=== PATIENT | female | born 1935 | race Caucasian/White ===

== ENCOUNTER 2018-02-25 23:05 | Inpatient (IN) | payer MEDICARE, OTHER ==
[~2018-02-25] VITALS: Ht 170.2 cm; Wt 72.6 kg
[2018-02-26] VITALS (7 sets, daily range): BP systolic 118–168; BP diastolic 65–80
--- NOTE | 2018-02-26 00:50 | Diagnostic Imaging Report ---
EXAMINATION: Head CT without contrast. HISTORY:Status post fall. COMPARISON:None. TECHNIQUE: Multidetector axial images were obtained from the foramen magnum to the vertex without contrast. The images were reconstructed using brain and bone algorithms. Thin section brain images were reformatted into coronal and sagittal planes. Intravenous contrast: None IMAGE QUALITY: Suboptimal evaluation due to motion artifacts. FINDINGS: Skull/scalp: No lytic or blastic. lesions. No surgical changes. Parenchyma: Nonspecific few, scattered supratentorial white matter patchy hypodensity are likely related to small vessel ischemic changes. Suboptimal evaluation due to motion artifacts, despite the limitation no gross acute hemorrhage, mass or acute major vascular territorial infarct. Arteries: Mild atherosclerotic calcification in bilateral carotid siphon and V4 segment of the vertebral arteries. Dural sinuses: No abnormal density suggestive of thrombosis. Ventricles: Moderate compensated dilatation due to volume loss. No hydrocephalus. Extra-axial spaces: No abnormal density. Brain volume: Advanced generalized age-related cerebral volume loss. Craniocervical junction: No mass, Chiari malformation, or basilar invagination. Sella: No mass. Paranasal/mastoid sinuses: Mild mucosal thickening in left maxillary sinus. IMPRESSION: 1. Suboptimal evaluation due to motion artifacts, despite the limitation no gross acute posttraumatic intracranial abnormality. 2. Mild supratentorial white matter microvascular ischemic changes. 3. Advanced generalized cerebral volume loss. Signed by: Dr. Emily Fenton M.D. on 02/26/2018 12:47 AM
[2018-02-26] MEDS ORDERED: ONDANSETRON HCL INJ 2 MG/ML VIAL IV STA (01:53)
[2018-02-26] MEDS ORDERED: MORPHINE SULFATE 2 MG/ML SYR IV STA (01:53)
--- NOTE | 2018-02-26 02:08 | Diagnostic Imaging Report ---
KNEE LEFT THREE VIEWS, FEMUR 2 VIEWS MINIMUM LEFT, PELVIS AP 1-2 VIEWS Comparison: None Clinical history: Fall, left leg pain Findings: AP pelvis, left femur and knee: Limited by diffusely decreased bone mineralization and overlying artifact. Mild bilateral hip and knee degenerative changes. Oblique cortical step-off is seen of the left distal femur. Alice-Stieda lesion. Impression: Limited study. Nondisplaced oblique distal femur fracture. Signed by: Dr Alessandra Mckee MD on 02/26/2018 1:54 AM
--- NOTE | 2018-02-26 02:20 | Diagnostic Imaging Report ---
CHEST SINGLE (PORTABLE), 02/26/2018 12:03 AM Technique: CHEST SINGLE (PORTABLE) Comparison: None available. Clinical history: Fall Findings: See Impression. Severe left shoulder degenerative changes. A catheter projects over the upper abdomen. Impression: Severely limited by portable technique and marked leftward rotation. 1. Suboptimal assessment of the cardiomediastinal silhouette due to rotation. Aortic calcifications. 2. Suggestion of medial left basilar opacity may be projectional related to rotation. Recommend follow-up with attention to more centered positioning. Signed by: Dr Alessandra Mckee MD on 02/26/2018 2:16 AM
--- NOTE | 2018-02-26 02:35 | Diagnostic Imaging Report ---
CT LEFT LOWER EXTREMITY WO Clinical history: \S\? distal femur fx \[id number] \S\0200 Technique: Volumetric CT scan of the left leg was performed. No intravenous contrast was administered. Coronal, sagittal and axial images are generated from source data. Comparison: None Findings: There is diffusely decreased bone mineralization. A nondisplaced fracture is seen through the distal lateral femoral metadiaphysis, predominantly oblique with slight comminution distally. Mild adjacent periosteal reaction and sclerosis suggests there could be a subacute component. There is also a nondisplaced horizontal fracture of the patella. Well-corticated ossific fragment along the right medial femoral condyle is compatible with a Alice-Stieda lesion. Mild tricompartmental knee degenerative changes. Small knee joint effusion. Diffuse muscular atrophy and vascular calcifications are noted. Impression: 1. Nondisplaced distal left femur fracture, with possible subacute component. 2. Nondisplaced horizontal patellar fracture. Signed by: Dr Alessandra Mckee MD on 02/26/2018 2:32 AM
[2018-02-26 03:04] LABS: BASOPHILS % 0.5 % (0.0-1.0); EOSINOPHILS # (AUTO) 0.3 (0.0-0.4); EOSINOPHILS % 3.9 % (0.0-6.0); HEMATOCRIT 38.9 % (34.2-44.1); HEMOGLOBIN 12.8 g/dL (12.0-16.0); LYMPHOCYTES # (AUTO) 1.4 (1.0-3.2); MEAN CORPUSCULAR HEMOGLOBIN 31.1 pg (28-32); MEAN CORPUSCULAR HGB CONC 32.9 g/dL (31-35); MEAN CORPUSCULAR VOLUME 94.4 fL (81-99); MONOCYTES # (AUTO) 0.8 (0.2-0.8); MONOCYTES % 12.6 % (4.4-11.3); NEUTROPHILS % 61.8 % (38.7-80.0); PLATELET COUNT 175 x10e3/uL (140-360); RED BLOOD COUNT 4.12 x10e6/uL (3.6-5.1); RED CELL DISTRIBUTION WIDTH 15.2 % (11.7-14.4)
[2018-02-26 03:15] LABS: INR 1.08; PROTHROMBIN TIME 13.2 seconds (11.9-14.5)
[2018-02-26 03:16] LABS: PARTIAL THROMBOPLASTIN TIME 40.2 seconds (23.8-35.5)
[2018-02-26 03:24] LABS: ALANINE AMINOTRANSFERASE 22 IU/L (0-55); ALBUMIN 3.4 g/dL (3.5-5.0); ALKALINE PHOSPHATASE 77 IU/L (40-150); ANION GAP 11.2 mmol/L (8-16); BLOOD UREA NITROGEN 15 mg/dL (7-26); BUN/CREATININE RATIO 27 (6-25); CARBON DIOXIDE 32 mmol/L (22-29); CHLORIDE 90 mmol/L (98-107); CREATINE KINASE 154 IU/L (29-168); CREATININE, SERUM 0.56 mg/dL (0.57-1.11); EST GLOMERULAR FILTRATION RATE > 60 ML/MIN (60-); GLUCOSE 99 mg/dL (74-118); MAGNESIUM 2.2 MG/DL (1.3-2.1); POTASSIUM 4.2 mmol/L (3.5-5.1); SODIUM 129 mmol/L (136-145)
[2018-02-26] MEDS ORDERED: ONDANSETRON HCL INJ 2 MG/ML VIAL IV PRN (04:00)
[2018-02-26] MEDS ORDERED: SODIUM CHLORIDE 0.9% 1000ML 1,000 ML IV ONE (04:00)
[2018-02-26 06:28] LABS: CLARITY,URINE SL CLOUDY (CLEAR); COLOR,URINE YELLOW (YELLOW); LEUKOCYTE ESTERASE ,URINE 1+ (NEGATIVE); NITRITE,URINE NEGATIVE (NEGATIVE); PROTEIN,URINE DIPSTICK TRACE (NEGATIVE)
[2018-02-26] MEDS ORDERED: ULTRAM50 MG GT (06:28)
[2018-02-26] MEDS ORDERED: DOCUSATE SODIU100 M1 GT (06:28)
[2018-02-26] MEDS ORDERED: MAALOX MAXIMUM355 ML GT (06:28)
[2018-02-26] MEDS ORDERED: FAMOTIDINE20 MG GT (06:28)
[2018-02-26] MEDS ORDERED: NITROGLYCERIN0.4 MG SL (06:28)
[2018-02-26] MEDS ORDERED: LIDOCAINE1 EA TOP (06:28)
[2018-02-26] MEDS ORDERED: LASIX20 MG GT (06:28)
[2018-02-26] MEDS ORDERED: LEVOTHYROXINE100 MC1 GT (06:28)
[2018-02-26] MEDS ORDERED: SENNOSIDES8.6 MG GT (06:28)
[2018-02-26] MEDS ORDERED: AMBIEN10 MG GT (06:28)
[2018-02-26] MEDS ORDERED: HYDROCORTISONE30 GM TOP (06:28)
[2018-02-26] MEDS ORDERED: LORATADINE10 MG GT (06:28)
[2018-02-26] MEDS ORDERED: CYCLOBENZAPRINE10 MG GT (06:28)
[2018-02-26] MEDS ORDERED: MULTIVITAMINS1 EAC6 GT (06:28)
[2018-02-26 06:29] LABS: BILIRUBIN,URINE NEGATIVE (NEGATIVE); KETONES,URINE NEGATIVE (NEGATIVE); URINE UROBILINOGEN 0.2 mg/dL (0.2 - 1)
[2018-02-26 06:40] LABS: EPITHELIAL CELLS,URINE RARE /LPF; TRANSITIONAL EPI CELLS,URINE FEW; WBC,URINE (MAN) >50 /HPF (0-5)
[2018-02-26 06:41] LABS: BACTERIA,URINE FEW /HPF; RBC,URINE 0-5 /HPF (0-5)
[2018-02-26] MEDS: MORPHINE SULFATE 2 MG/ML SYR IV PRN (07:36)
[2018-02-26] MEDS ORDERED: JEVITY237 ML GT (08:14)
[2018-02-26] MEDS ORDERED: LIDOCAINE 5% PATCH TP PRN (10:30)
[2018-02-26] MEDS ORDERED: NITROGLYCERIN 0.4 MG SUBL SL PRN (10:30)
[2018-02-26] MEDS ORDERED: HYDROCORTISONE .5% 30 GM TUBE TOP PRN (10:30)
[2018-02-26] MEDS ORDERED: MAGNESIUM/ALUMINUM/SIMETHICONE 30 ML UDC GT PRN (10:30)
--- NOTE | 2018-02-26 13:18 | History and Physical ---
She is an 82-year-old female patient of mine. She was transferred at the [facility] from [place] after dysphagia, fall and severe weakness, and patient had a recent G-tube placement for malnutrition. While patient was getting rehab at the long-term, patient had a fall and patient had hurt her left thigh area. Patient has nondisplaced fracture of the distal femur. Patient was sent to the ER and patient was found to have a nondisplaced oblique distal femur fracture. Patient was having severe pain, requiring IV analgesics. Patient was admitted for further care. ALLERGIES: NO KNOW DRUG ALLERGIES. MEDICAL HISTORY: Patient has significant medical history of idiopathic polymyositis with severe weakness, lack of coordination, dysphagia which required a PEG tube placement, chronic moderate protein-calorie malnutrition, hypertension, insomnia, arthritis, and hypothyroidism. PAST SURGICAL HISTORY: Patient has recent PEG tube placed. SOCIAL HISTORY: Denies smoking, denies using alcohol. MEDICATIONS: See from the long-term list. FAMILY HISTORY: Hypertension. REVIEW OF SYSTEMS: Left thigh pain. PHYSICAL EXAMINATION GENERAL: She is an elderly female patient, lying in the bed, not in any acute distress. Patient was recently given IV analgesic morphine. VITAL SIGNS: Temperature 97, pulse is 65, blood pressure 168/77, respiration rate 14, O2 sat 96%. HEENT: Normocephalic, atraumatic. No JVD. No lymphadenopathy. LUNGS: Bilateral equal air entry. No rales, no rhonchi. HEART: S1, S2 regular. Systolic murmur present. ABDOMEN: Soft. Bowel sounds present. NEUROLOGIC: No focal neurological deficit. The patient has a generalized muscle weakness. ACUTE RADIOLOGICAL EXAMINATION: Patient has a distal femur fracture and patellar fracture in the left side. LABORATORY EXAMINATION: Patient has a sodium of 129. ADMITTING IMPRESSION/DIAGNOSES 1. Left distal femur fracture with left patellar fracture. 2. Hyponatremia. 3. Severe pain. 4. Dysphagia. 5. Hypertension. 6. Hypothyroidism. PLAN: Patient had orthopedic evaluation, was done by Dr. Leroy and patient was advised to keep a splint for 8 to 10 weeks and immobilization of the left thigh area and nonweightbearing. Patient will be anticoagulated, prophylaxis for DVT. Patient will be admitted with the above diagnoses and will also obtain rehab, LTAC, consult Dr. Coy. Patient will be given Lovenox and morphine. Job#: [id number] LPA
[2018-02-26] MEDS: SENNOSIDES 8.6 MG TAB GT SCH (16:21)
[2018-02-26] MEDS: DOCUSATE SODIUM LIQD 100 MG/10 ML UDC GT SCH (16:21)
[2018-02-26] MEDS: FAMOTIDINE 20 MG TAB GT SCH (16:21)
[2018-02-26] MEDS: ENOXAPARIN 30 MG/0.3 ML SYR SC SCH (16:22)
[2018-02-26] MEDS: TRAMADOL HCL 50 MG TAB GT PRN ×2 (16:30→20:35)
[2018-02-26] MEDS ORDERED: ACETAMINOPHEN/CODEINE 300MG - 30MG TAB PO PRN (16:45)
--- NOTE | 2018-02-26 17:38 | Consultation ---
DATE OF CONSULTATION: February 26, 2018 REHAB CONSULTATION REFERRING PHYSICIAN: Dr. Agustín Chan. I would like to thank Dr. Chan for asking me to see Mrs. Perez in consultation. REASON FOR CONSULTATION 1. Status post fall with distal femur fracture and left patella fracture. 2. Dysphagia with PEG tube placement. 3. Idiopathic polymyositis with muscle weakness. 4. Hypertension. HISTORY: The patient is an 82-year-old very pleasant female who is staying over at a local [facility] facility when she had a fall. The patient had recent G tube placement for malnutrition. While she was in therapy, she unfortunately fell and hurt her thigh, came back and found to have a nondisplaced fracture of the distal femur as well as a nondisplaced patella fracture. Was seen by Dr. Leroy, is nonweightbearing to the left lower extremity and is being treated with a splint and then eventually a cast, no surgery at this point. I am being asked to evaluate for possible rehab stay. PAST MEDICAL HISTORY: Includes idiopathic polymyositis with weakness, dysphagia chronic, moderate protein caloric malnutrition, hypertension, insomnia, arthritis, hypothyroidism. SURGERIES: PEG tube placement. HABITS: Nonsmoker, nondrinker. SOCIAL HISTORY: Was living at home and hopes to eventually be able to go back home, but she has been in the penitentiary facility for quite some time. FAMILY HISTORY: Hypertension runs in the family. CONSTITUTIONAL REVIEW OF SYSTEMS: Eleven-point review of systems noted. She has generalized weakness due to her polymyositis, a little bit more weak on the left shoulder compared to the right shoulder. Otherwise she has some generalized weakness. Rest of the review of systems essentially negative. LABS: White cell count of 6.4, hemoglobin 12.8, hematocrit 38.9, platelets of 175. Sodium is 129, potassium 4.2, BUN of 15, creatinine of 0.56. IMAGING: She had the CT of the left femur which showed nondisplaced oblique distal femur fracture. She also had one of the brain which showed suboptimal evaluation but no gross acute posttraumatic intracranial abnormalities. Has a horizontal patella fracture. PHYSICAL EXAMINATION GENERAL: Awake and alert. She is very pleasant. NECK: No JVD. HEART: Regular. LUNGS: Fair entry. ABDOMEN: Nontender. She has a PEG tube in place. Nondistended. EXTREMITIES: She has a functional range of motion to the upper extremities. She has a large posterior splint on the left foot. She can wiggle her toes, and she has feeling to the toes. No cyanosis or excessive edema to the toes of the left foot. She has limited active range of motion of the right lower extremity. No new sensory changes per her report. MANUAL MUSCLE TESTING: Shoulder flexion and extension is 3+/5 on the left, 4-/5 on the right. Elbow flexion and extension and border measurer is 4-/5 bilaterally. In the left lower extremity, hip and knee flexion and extension was not tested. She cannot wiggle her ankle, and she is in a posterior splint. However, she can still wiggle her toes of the left foot. The left lower extremity demonstrates at least 3/5 strength with hip and knee flexion and extension. IMPRESSION 1. Status post fall with distal left femur and patella fracture. 2. Polymyositis. 3. Patient with dysphagia with percutaneous endoscopic gastrotomy tube placement. 4. Malnutrition. Now she has her PEG tube, she should be better off. 5. Hypertension. PLAN: The patient would probably best be served at a penitentiary facility as she cannot bear weight for the next 2 to 10 weeks. She needs to be strict nonweightbearing to the left leg and needs work on her transfers and sitting-downs. Unfortunately, given her polymyositis and her weakness, this is going to be difficult to do and at this point it does not seem plausible that she can handle a 3-hour inpatient intense rehab program. Therefore, at this point skilled is probably more appropriate for her. PRECAUTIONS: Nonweightbearing to the left lower extremity. Thank you once again for allowing me to participate in the care of this pleasant patient. Job#: [id number] EV
[2018-02-26] MEDS: ZOLPIDEM TARTRATE 10 MG TAB GT PRN (20:35)
[2018-02-27] VITALS (7 sets, daily range): BP systolic 102–156; BP diastolic 54–77
[2018-02-27 04:56] LABS: BASOPHILS % 0.5 % (0.0-1.0); EOSINOPHILS # (AUTO) 0.3 (0.0-0.4); EOSINOPHILS % 4.5 % (0.0-6.0); HEMATOCRIT 33.7 % (34.2-44.1); HEMOGLOBIN 11.3 g/dL (12.0-16.0); LYMPHOCYTES # (AUTO) 1.1 (1.0-3.2); LYMPHOCYTES % 18.3 % (18.0-39.1); MEAN CORPUSCULAR HEMOGLOBIN 31.4 pg (28-32); MEAN CORPUSCULAR HGB CONC 33.5 g/dL (31-35); MEAN CORPUSCULAR VOLUME 93.6 fL (81-99); MONOCYTES # (AUTO) 0.8 (0.2-0.8); MONOCYTES % 13.5 % (4.4-11.3); NEUTROPHILS # (AUTO) 3.9 (2.1-6.9); NEUTROPHILS % 62.9 % (38.7-80.0); PLATELET COUNT 162 x10e3/uL (140-360); RED CELL DISTRIBUTION WIDTH 15.4 % (11.7-14.4)
[2018-02-27 05:21] LABS: ALANINE AMINOTRANSFERASE 19 IU/L (0-55); ALBUMIN 2.9 g/dL (3.5-5.0); ALKALINE PHOSPHATASE 65 IU/L (40-150); ANION GAP 10.6 mmol/L (8-16); BLOOD UREA NITROGEN 17 mg/dL (7-26); BUN/CREATININE RATIO 30 (6-25); CALCIUM 9.5 mg/dL (8.4-10.2); CARBON DIOXIDE 30 mmol/L (22-29); CHLORIDE 96 mmol/L (98-107); CREATININE, SERUM 0.57 mg/dL (0.57-1.11); EST GLOMERULAR FILTRATION RATE > 60 ML/MIN (60-); GLUCOSE 117 mg/dL (74-118); POTASSIUM 4.6 mmol/L (3.5-5.1); SODIUM 132 mmol/L (136-145)
[2018-02-27] MEDS: LEVOTHYROXINE SODIUM 50 MCG TAB PO SCH ×2 (06:00→09:00)
[2018-02-27] MEDS ORDERED: LEVOTHYROXINE SODIUM 100 MCG/VIAL IV SCH (09:00)
[2018-02-27] MEDS ORDERED: LORATADINE 10 MG TAB GT PRN (09:00)
[2018-02-27] MEDS: FUROSEMIDE 20 MG TAB GT SCH (10:17)
[2018-02-27] MEDS: FAMOTIDINE 20 MG TAB GT SCH ×2 (10:17→17:01)
[2018-02-27] MEDS: SENNOSIDES 8.6 MG TAB GT SCH ×2 (10:17→17:01)
[2018-02-27] MEDS: DOCUSATE SODIUM LIQD 100 MG/10 ML UDC GT SCH ×2 (10:17→17:01)
[2018-02-27] MEDS: ENOXAPARIN 30 MG/0.3 ML SYR SC SCH (17:01)
[2018-02-27] MEDS: TRAMADOL HCL 50 MG TAB GT PRN (19:30)
[2018-02-27] MEDS: ZOLPIDEM TARTRATE 10 MG TAB GT PRN (19:45)
[2018-02-27] MEDS: MORPHINE SULFATE 2 MG/ML SYR IV PRN (22:40)
[2018-02-28] VITALS (7 sets, daily range): BP systolic 105–149; BP diastolic 51–70
[2018-02-28] MEDS: TRAMADOL HCL 50 MG TAB GT PRN ×3 (00:57→20:15)
[2018-02-28] MEDS: LEVOTHYROXINE SODIUM 75 MCG TAB PO SCH (05:05)
[2018-02-28] MEDS: FAMOTIDINE 20 MG TAB GT SCH ×2 (09:03→16:47)
[2018-02-28] MEDS: FUROSEMIDE 20 MG TAB GT SCH (09:03)
[2018-02-28] MEDS: DOCUSATE SODIUM LIQD 100 MG/10 ML UDC GT SCH ×2 (09:03→16:47)
[2018-02-28] MEDS: SENNOSIDES 8.6 MG TAB GT SCH ×2 (09:04→16:47)
[2018-02-28] MEDS: ENOXAPARIN 30 MG/0.3 ML SYR SC SCH (16:47)
[2018-02-28] MEDS: ZOLPIDEM TARTRATE 10 MG TAB GT PRN (20:43)
[2018-03-01] VITALS: BP 137/64
[2018-03-01] MEDS: TRAMADOL HCL 50 MG TAB GT PRN (01:00)
[2018-03-01 04:00] VITALS: BP 108/54
[2018-03-01 04:54] LABS: BASOPHILS % 0.5 % (0.0-1.0); EOSINOPHILS # (AUTO) 0.1 (0.0-0.4); HEMATOCRIT 33.5 % (34.2-44.1); HEMOGLOBIN 11.2 g/dL (12.0-16.0); LYMPHOCYTES % 16.7 % (18.0-39.1); MEAN CORPUSCULAR HEMOGLOBIN 31.3 pg (28-32); MEAN CORPUSCULAR HGB CONC 33.4 g/dL (31-35); MEAN CORPUSCULAR VOLUME 93.6 fL (81-99); MONOCYTES # (AUTO) 1.2 (0.2-0.8); MONOCYTES % 19.3 % (4.4-11.3); NEUTROPHILS # (AUTO) 3.7 (2.1-6.9); NEUTROPHILS % 61.2 % (38.7-80.0); PLATELET COUNT 128 x10e3/uL (140-360); RED BLOOD COUNT 3.58 x10e6/uL (3.6-5.1); RED CELL DISTRIBUTION WIDTH 15.3 % (11.7-14.4)
[2018-03-01 05:10] LABS: ALANINE AMINOTRANSFERASE 17 IU/L (0-55); ALBUMIN 2.8 g/dL (3.5-5.0); ALKALINE PHOSPHATASE 63 IU/L (40-150); ANION GAP 9.4 mmol/L (8-16); BLOOD UREA NITROGEN 16 mg/dL (7-26); BUN/CREATININE RATIO 28 (6-25); CALCIUM 9.4 mg/dL (8.4-10.2); CARBON DIOXIDE 31 mmol/L (22-29); CHLORIDE 93 mmol/L (98-107); CREATININE, SERUM 0.57 mg/dL (0.57-1.11); EST GLOMERULAR FILTRATION RATE > 60 ML/MIN (60-); GLUCOSE 139 mg/dL (74-118); POTASSIUM 4.4 mmol/L (3.5-5.1); SODIUM 129 mmol/L (136-145)
[2018-03-01] MEDS: LEVOTHYROXINE SODIUM 75 MCG TAB PO SCH (05:59)
[2018-03-01] MEDS: FUROSEMIDE 20 MG TAB GT SCH (09:00)
[2018-03-01] MEDS: SENNOSIDES 8.6 MG TAB GT SCH ×2 (09:00→17:06)
[2018-03-01] MEDS: FAMOTIDINE 20 MG TAB GT SCH ×2 (09:00→17:06)
[2018-03-01] MEDS: DOCUSATE SODIUM LIQD 100 MG/10 ML UDC GT SCH ×2 (09:00→17:06)
[2018-03-01 09:39] VITALS: BP 130/63
[2018-03-01 09:48] VITALS: BP 130/63
[2018-03-01 12:14] VITALS: BP 114/53
[2018-03-01] MEDS: ENOXAPARIN 30 MG/0.3 ML SYR SC SCH (17:06)
[2018-03-01 17:08] VITALS: BP 134/62
--- NOTE | 2018-03-02 09:46 | Discharge Summary ---
HISTORY: An 82-year-old female patient presented from the [facility] after a fall and had a distal left femur and patellar fracture. ADMITTING IMPRESSIONS/DIAGNOSES 1. Distal left femur and patellar fracture on the left side, nondisplaced. 2. Hyponatremia. 3. Severe pain. 4. Hypertension. 5. Hyperthyroidism. HOSPITAL COURSE SUMMARY: Patient was admitted with the above diagnoses. Patient had evaluation done by Dr. Leroy. Patient was advised for nonsurgical treatment, soft casting and immobilization for 8 to 10 weeks. Patient will be given Lovenox. Patient was given morphine. stabilization, patient's pain medicine, since the pain has decreased, will be changed to tramadol and patient will be discharged to the [facility] home with not weightbearing and physical therapy and occupational therapy. Patient had a rehab evaluation done by Dr. Raymon Coy. TIMOTEO MCDANIEL MD Job#: [id number] EV
== END 2018-03-01 17:12 | disposition other institution (70) | DRG 534 ==
LOC: ER 23:05 → ERHOLD 02-26 04:05 → IMCU 02-26 05:22 → OBSVTOIN 02-27 16:47 → MED/SURG 02-27 17:29
PROVIDERS: ADMIT Internal Medicine; ATTEND Internal Medicine
DX: S72.492A Other fracture of lower end of left femur, initial encounter for closed fracture (principal); S82.092A Other fracture of left patella, initial encounter for closed fracture; M33.22 Polymyositis with myopathy; E87.1 Hypo-osmolality and hyponatremia; W01.0XXA Fall on same level from slipping, tripping and stumbling without subsequent striking against object, initial encounter; R13.10 Dysphagia, unspecified; I10 Essential (primary) hypertension; Z93.1 Gastrostomy status; E03.9 Hypothyroidism, unspecified; M19.90 Unspecified osteoarthritis, unspecified site; G89.11 Acute pain due to trauma
CPT/HCPCS: 36415; 51700; 70450; 71045; 72170; 80053; 81001; 82550; 82553; 82948; 83735; 84484; 85025; 85610; 85730; 97139; 99284; G0378; J1650; J2270; J2405; J7030